=== PATIENT | female | born 1960 ===

== ENCOUNTER 2023-06-09 01:59 | Outpatient (CLI) | payer SELFPAY | END 2023-06-09 02:00 | disposition EMS.NT | LOC: EMS 01:59 | DX: Z03.89 Encounter for observation for other suspected diseases and conditions ruled out (principal) ==

== ENCOUNTER 2023-06-09 05:44 | Outpatient (CLI) | payer SELFPAY | END 2023-06-09 23:59 | disposition EMS.NT | LOC: EMS 05:44 | DX: R53.1 Weakness (principal) ==

== ENCOUNTER 2024-02-04 02:33 | Outpatient (CLI) | payer OTHER | END 2024-02-04 23:59 | disposition EMS.NT | LOC: EMS 02:33 | DX: Z03.89 Encounter for observation for other suspected diseases and conditions ruled out (principal) ==